=== PATIENT | male | born 1970 | race Caucasian/White ===

== ENCOUNTER 2019-05-04 06:03 | Inpatient (IN) | payer MEDICARE, SELFPAY ==
[2019-05-04] VITALS (9 sets, daily range): BP systolic 119–146; BP diastolic 93–103; PULSE 83–105; RESP 16–18; TEMP 36.3–37; O2SAT 95–97; BMI 36.3; BMI 35.0
--- NOTE | 2019-05-04 06:42 | CT_ITS ---
STUDY: CT ABDOMEN AND PELVIS WITH CONTRAST REASON FOR EXAM: Male, 48 years old. Mid abdominal pain. History of prior partial colectomy. RADIATION DOSAGE (If Supplied By Facility): CTDIvol = ( 17.05 ) mGy, DLP = ( 1295.53 ) mGycm TECHNIQUE: Transaxial images were obtained from the dome of the diaphragm to the symphysis pubis with oral contrast. 100 IV/Oral Isovue 300 was administered. Sagittal and coronal images were reconstructed. Individualized dose optimization techniques were used for this CT. COMPARISON: None. FINDINGS: The visualized lung bases are unremarkable. The visualized portions of the heart are within normal limits. There is decreased attenuation of the liver consistent with steatosis. There is a 5.1 mm hypodense nodule in the inferior aspect of the right lobe of the liver. This may or present a small cyst. Normal gallbladder and extrahepatic biliary system. Normal spleen. Normal pancreas. Normal bilateral adrenal glands. Normal right kidney. There is a 4.9 mm nonobstructive calculus in the lower pole calyx of the left kidney. 1.2 cm cyst in the left kidney. There is a small hiatal hernia. Minimally distended small bowel loops with air-fluid levels in the upper abdomen. Distal small bowel loops are unremarkable. The transition point is in the distal jejunum. Surgical clips are seen in the right upper quadrant. There is evidence of a subtotal colectomy. The rectum is unremarkable. The appendix is visualized and appears normal. Normal abdominal aorta. Normal inferior vena cava. Normal retroperitoneum. There is a 1.4 cm outpouching along the lateral posterior aspect of the left side of the bladder. This may represent a small bladder diverticulum. There are prostatic calcifications. Normal abdominal wall. Small benign-appearing bilateral inguinal lymph nodes. Normal osseous structures. CT/Abdomen/Pelvis WITH Contrast IMPRESSION: Status post subtotal colectomy. Mildly dilated small bowel loops with the transition point in the distal jejunum. Diffuse fatty infiltration of the liver are Nonobstructive calculus in the lower pole calyx of the left kidney. Electronically Signed: Arthur Santiago, at 9:17 EDT , Service support ,
--- NOTE | 2019-05-04 06:47 | ED.VIS.GEN ---
History of Present Illness Chief Complaint: Abd Pain Narrative: Patient is a 48-year-old male who presents with abdominal pain. This began about an hour or hour and a half after eating last night. He ate at a buffet. He ate chicken mashed potatoes and noodles. He does not have a history of similar pain with fatty or greasy foods previously. He describes his pain as cramping or squeezing in the mid abdomen. Other family members who ate at the same restaurant are not ill. His pain worsened through the night and about 5 hours ago he developed nausea and vomiting and has had about 3 or 4 episodes since that time. No fevers. No diarrhea. He denies chest pain shortness of breath cough or other recent illness. He does have a history of colon resection due to diverticulitis with perforation. Past Medical History - Allergies and Home Meds Allergies/Adverse Reactions: Allergies No Known Allergies Allergy (Verified 05/04/19 06:55) Primary Care Physician: NOT,DEFINED [NON-STAFF] - Past Medical History: - - Diverticulitis, hypertension, hyperlipidemia Surgical History: - - Colon resection Smoking Status: Former smoker Review of Systems All systems negative except as indicated General: Denies: Fever Cardiovascular: Denies: Chest pain Respiratory: Denies: Dyspnea Gastrointestinal: Reports: Abdominal pain, Nausea, Vomiting. Denies: Diarrhea Skin: Denies: Rash Neurological: Denies: Headache Physical Exam Vital Signs/Narrative: Vital Signs Temp Pulse Resp BP Pulse Ox 05/04/19 06:11 97.4 F L 103 H 16 142/103 H 95 05/04/19 06:05 97.8 F 98 16 142/103 H 95 General: Well nourished Head: Normocephalic Eyes: EOMI ENT: Moist mucous membranes Cardiovascular: Regular rate, Regular rhythm Respiratory: No distress Abdomen: Soft, - - Mid abdominal tenderness without guarding without rebound no focal right upper quadrant right lower quadrant tenderness. No pain at McBurney's point, negative Schaefer sign Skin: Normal color Neurological: Alert Psychological: Normal affect Diagnostic/Tx/Re-eval 05/04/19 06:42 Abdomen/Pelvis WITH Contrast [CT] Stat Laboratory Results 05/04/19 05/04/19 06:15 06:15 WBC 14.1 H RBC 5.81 Hgb 16.9 H Hct 50.3 MCV 86.6 MCH 29.1 MCHC 33.6 RDW Std Deviation 40.2 RDW Coeff of [place] 12.8 Plt Count 298 MPV 10.6 Immature Gran % (Auto) 0.500 Neut % (Auto) 90.1 H Lymph % (Auto) 6.2 L [place] % (Auto) 2.7 Eos % (Auto) 0.1 Baso % (Auto) 0.4 Absolute Neuts (auto) 12.7 H Absolute Lymphs (auto) 0.88 Nucleated RBC % 0 Sodium 141 Potassium 4.1 Chloride 107 Carbon Dioxide 26.0 Anion Gap 8 BUN 10 Creatinine 0.98 Estim Creat Clear Calc 103.05 Est GFR (MDRD) Af Amer 104 Est GFR (MDRD) Non-Af 86 BUN/Creatinine Ratio 10.2 Glucose 130 H Calcium 9.2 Total Bilirubin 0.80 AST 13 L ALT 29 Alkaline Phosphatase 60 Total Protein 7.3 Albumin 3.9 Globulin 3.4 Albumin/Globulin Ratio 1.1 Lipase 119 - Medical Decision Making Patient was treated with IV fluids morphine Zofran with improvement of symptoms. Labs are notable for white blood cell count of 14,000. Differential would include cholecystitis, diverticulitis, bowel obstruction. Therefore felt CT was the best study to further evaluate. At the time of this dictation a CT of the abdomen and pelvis with oral and IV contrast is pending. Patient has been signed out to the oncoming physician to follow-up on this result make final disposition. ED Disposition - Plan for ED Patient: Diagnosis: Abdominal pain Referrals: NOT,DEFINED [NON-STAFF] -
[2019-05-04] MEDS: 0.9% Normal Saline 1,000 ML 1000 ML IV (06:55)
[2019-05-04] MEDS: Ondansetron 4 MG/2 ML Vial IV ×2 (06:56→17:22)
[2019-05-04] MEDS: Morphine 4 MG/ML Syringe IV ×2 (06:57→10:00)
[2019-05-04 06:59] LABS: Absolute Lymphocyte Count 0.88 X10^3/uL (0.83-4.51); Absolute Neutrophil Count 12.7 X10^3/uL (2.0-7.7); Basophil# 0.06 X10^3/uL; Basophil% 0.4 % (0-1); Eosinophil# 0.02 X10^3/uL; Eosinophils% 0.1 % (0-5); Hematocrit 50.3 % (40-54); Hemoglobin 16.9 g/dL (13.0-16.5); Lymphocyte # 0.88 X10^3/ul (4.0); Lymphocyte % 6.2 % (19-41); Mean Corp Hgb Conc 33.6 g/dL (32-36); Mean Corpuscular Hgb 29.1 pg (27.0-32.0); Mean Corpuscular Volume 86.6 fL (80-94); Mean Platelet Vol. 10.6 fl (6.2-12.0); Monocyte# 0.38 X10^3/uL; Monocyte% 2.7 % (0-10); NRBC Flagged by Analyzer 0 % (0-5); Neutrophil # 12.71 X10^3/uL (2.7-7.7); Neutrophil % 90.1 % (47-70); Platelet Count 298 K/mm3 (150-450); RBC Distribution Width CV 12.8 % (11.6-14.6); RBC Distribution Width SD 40.2 fl (35.1-43.9); Red Blood Count 5.81 M/mm3 (4.6-6.2); White Blood Count 14.1 K/mm3 (4.4-11.0)
[2019-05-04 07:06] LABS: ALB/GLOB Ratio 1.1 RATIO (0.9-2.4); AST(SGOT) 13 U/L (15-37); Alanine Aminotransfer ALT/SGPT 29 U/L (16-61); Albumin, Serum 3.9 g/dL (3.2-5.0); Alkaline Phosphatase 60 U/L (45-117); Anion Gap 8 (5-15); BUN 10 mg/dL (7-18); BUN/Creat Ratio 10.2 RATIO (10-20); Calcium,Total 9.2 mg/dL (8.5-10.1); Chloride 107 mmol/L (98-107); Creatinine, Serum 0.98 mg/dL (0.70-1.30); EST Glomerular Filtration Rate 86 mL/min (>60); Est Glom Filt Rate - Afr Amer 104 mL/min (>60); Estimated Creatinine Clearance 103.05 ml/min; Globulin 3.4 g/dL (2.2-4.2); Glucose 130 mg/dL (74-106); Lipase 119 U/L (73-393); Potassium 4.1 mmol/L (3.5-5.1); Protein, Total 7.3 g/dL (6.4-8.2); Sodium Level 141 mmol/L (136-145)
--- NOTE | 2019-05-04 09:49 | NURSING ---
MED SURG SUSPECTED SBO ZACH
--- NOTE | 2019-05-04 10:45 | HP.PCM_ITS ---
Problem List (1) GERD (gastroesophageal reflux disease) Status: Chronic (2) Hyperlipidemia Status: Chronic (3) Depression Status: Chronic (4) Hypertension Status: Chronic (5) Small bowel obstruction Status: Acute History of Present Illness Date of Admission: 05/04/19 Chief Complaint: Abdominal pain. The patient is a 48 year old M with past medical history as mentioned above presented to the emergency room because of abdominal pain. Her symptoms started last night with abdominal pain, initially was mild, around mid abdomen, got worse when he was about to go to bed, sharp pain and sometimes twisting pain, was almost 10 out of 10 in severity, associated with nausea and vomiting and without aggravating or relieving factors. The pain was intermittent, comes and episodes. He reported associated heartburn. He mentioned that he had bowel movement last night but he has not passing any gas since last night. He denies fever or chills. He had a history of colon resection 19 years ago for perforated diverticulitis. In the emergency department, patient was slightly tachycardic, other vital signs were stable. Routine blood work was remarkable for leukocytosis, otherwise normal. LFT and lipase were unremarkable. CT scan abdomen and pelvis with contrast revealed mildly dilated small bowel loops with transition point in the distal jejunum. He is being admitted for small bowel obstruction. Past Medical History Past Medical History (Chronic Problems): Chronic Problems GERD (gastroesophageal reflux disease) (Chronic) Hyperlipidemia (Chronic) Depression (Chronic) Hypertension (Chronic) Allergies No Known Allergies Allergy (Verified 05/04/19 06:55) Home Medications: Ambulatory Orders Medication Instructions Recorded DiphenhydrAMINE [Benadryl] 50 mg PO DAILY 05/04/19 Lamotrigine [Lamictal] 150 mg PO QHS 05/04/19 Metoprolol Succinate [Toprol Xl] 25 mg PO DAILY 05/04/19 Omeprazole 20 mg PO BID 05/04/19 Rosuvastatin Calcium [Crestor] 5 mg PO DAILY 05/04/19 traZODone [Desyrel] 200 mg PO QHS 05/04/19 Surgical History: colectomy, - - Colon resection Psychiatric History: Depression Lives: Spouse/ Significant Other Smoking Status: Former smoker Alcohol: None Drugs: None - *Family History Maternal History Items: No pertinent history Paternal History Items: No pertinent history Review of Systems Constitutional: Denies: Anorexia, Chills, Fever, Weakness Eyes: Denies: Blurred vision, Double vision, Drainage, Redness HEENT: Denies: Difficulty Hearing, Ear Pain, Eye Pain, Nasal Congestion, Sore Throat Cardiovascular: Denies: Chest Pain, Chest Pressure, Chest Tightness, Heaviness, Light Headedness, Palpitations, Syncope Respiratory: Denies: Cough, Hemoptysis, Pleuritic Pain, Shortness of Breath, Sputum production, Wheezing Gastrointestinal: Reports: Abdominal Pain, Nausea, Vomiting. Denies: Constipation, Diarrhea, Hematochezia, Melena Genitourinary: Denies: Dysuria, Frequency, Hematuria Musculoskeletal: Denies: Arm Pain, Back Pain, Foot Pain Skin: Denies: Dryness, Rash Neurological: Denies: Balance problems, Double vision, Change in Speech, Slurred speech, Confusion, Headaches, Incoordination, Numbness Psychiatric: Reports: Depression. Denies: Anxiety Endocrine: Denies: Change in Body Habitus, Polydipsia, Polyuria VTE Information - Inpt Only VTE Present on Admission: No VTE Mechan Device Prophylaxis: None VTE Pharm Prophylaxis ordered?: No Patient Problems: Active and Suspected Problems Small bowel obstruction (Acute) - Physical Exam General: Alert, Oriented x3, Cooperative, No apparent distress HEENT: Atraumatic, PERRLA, EOMI, Normocephalic Oral: Moist Mucosa, No Gingival or Mucosal Lesions/ Ulcerations Neck: Supple, No JVD, Negative Carotid Bruits, Trachea Midline, Thyroid Normal Size and Texture Lungs: Clear to auscultation, Normal air movement, No rhonchi, No wheeze, No rales Cardiovascular: Regular rate, Regular Rhythm, Normal S1, Normal S2, PMI Normal, Tachycardic Abdomen: Bowel Sounds Present, Non-Distended, No Hepato-splenomegaly, Tender - No guarding or rigidity. Extremities: No clubbing, No cyanosis, No edema Skin: No rashes, No breakdown Lymphatic: No Cervical, Supraclavicular, or Inguinal Adenopathy Neurological: Cranial nerves II-XII grossly intact, Motor Exam 5/5 strength throughout Psych/Mental Status: Normal Affect, Appropriate, Alert and oriented to time, place, person, mood and affect Vital Signs Temp Pulse Resp BP Pulse Ox 97.4 F L 105 H 16 145/99 H 96 05/04/19 06:11 05/04/19 10:04 05/04/19 10:04 05/04/19 10:04 05/04/19 10:04 Oxygen Delivery Method Room Air Weight: 275 lb 12.772 oz Body Mass Index (BMI) 36.3 Laboratory Tests Past 24 Hrs 05/04/19 05/04/19 06:15 06:15 WBC 14.1 H RBC 5.81 Hgb 16.9 H Hct 50.3 MCV 86.6 MCH 29.1 MCHC 33.6 RDW Std Deviation 40.2 RDW Coeff of [place] 12.8 Plt Count 298 MPV 10.6 Immature Gran % (Auto) 0.500 Neut % (Auto) 90.1 H Lymph % (Auto) 6.[address] [place] % (Auto) 2.7 Eos % (Auto) 0.1 Baso % (Auto) 0.4 Absolute Neuts (auto) 12.7 H Absolute Lymphs (auto) 0.88 Nucleated RBC % 0 Sodium 141 Potassium 4.1 Chloride 107 Carbon Dioxide 26.0 Anion Gap 8 BUN 10 Creatinine 0.98 Estim Creat Clear Calc 103.05 Est GFR (MDRD) Af Amer 104 Est GFR (MDRD) Non-Af 86 BUN/Creatinine Ratio 10.2 Glucose 130 H Calcium 9.2 Total Bilirubin 0.80 AST 13 L ALT 29 Alkaline Phosphatase 60 Total Protein 7.3 Albumin 3.9 Globulin 3.4 Albumin/Globulin Ratio 1.1 Lipase 119 Clinical Impression(s) from Imaging Studies Abdomen/Pelvis CT 05/04/19 06:42 IMPRESSION: Status post subtotal colectomy. Mildly dilated small bowel loops with the transition point in the distal jejunum. Diffuse fatty infiltration of the liver are Nonobstructive calculus in the lower pole calyx of the left kidney. Electronically Signed: Arthur Santiago, at 9:17 EDT , Service support , Assessment/Plan All Active Problems Small bowel obstruction (Acute) This is a 48 years old male patient presented to the emergency room because of abdominal pain with nausea and vomiting and was found to have findings consistent with small bowel obstruction and he is being admitted for treatment. #1 small bowel obstruction: Likely due to adhesions, patient had a history of colectomy for perforated diverticulitis [address] scan abdomen and pelvis with contrast reviewed as above. Apart from leukocytosis, routine blood work was unremarkable. Serum electrolytes are within normal limits. LFT and lipase were normal. Plan: Admit to MedSur floor, keep on n.p.o., IV fluids, IV morphine PRN, IV Zofran and Phenergan as needed for nausea vomiting, IV Pepcid, general surgery consult, repeat CBC and BMP tomorrow morning, KUB tomorrow morning, ambulate. #2 hypertension: Blood pressure stable, continue metoprolol, IV dosing PRN. #3 GERD: Start IV Protonix. #4 depression/insomnia: Continue Lamictal and trazodone. #5 hyperlipidemia: Hold statins. #6 DVT prophylaxis: Low risk patient, no prophylaxis indicated, ambulate. This note was generated with [employer] dictation software. It may contain incorrect words, spelling, and punctuation that were not noted in checking the note before signing. Code Visit Inpatient E&M: 33085 Init Hosp L3
[2019-05-04] MEDS: Metoprolol(XL)Succ 25 MG Tablet PO (12:16)
[2019-05-04] MEDS: 0.9% Normal Saline 1,000 ML 100 ML IV ×2 (12:16→21:22)
[2019-05-04] MEDS: proMETHazine 25 MG/ML Syringe 6.25 MG IV ×2 (12:17→21:23)
[2019-05-04] MEDS: Morphine 2 MG/ML Syringe IV ×3 (12:17→21:23)
--- NOTE | 2019-05-04 12:20 | CON.PCM_ITS ---
Problem List (1) Small bowel obstruction Status: Acute Reason for Consult Date of Consultation: 05/04/19 Reason for Consultation: Small bowel obstruction History of Present Illness: The patient is a 48 year old M with abdominal pain and nausea and vomiting. Patient started to have abdominal pain yesterday and was up through the night with nausea and vomiting. He says the pain is in his upper abdomen and does not radiate. He is never had any bowel obstructions in the past. He does say that he had a hemicolectomy for diverticulitis 19 years ago. Past Medical History Past Medical History (Chronic Problems): Chronic Problems GERD (gastroesophageal reflux disease) (Chronic) Hyperlipidemia (Chronic) Depression (Chronic) Hypertension (Chronic) Allergies No Known Allergies Allergy (Verified 05/04/19 06:55) Home Medications: Ambulatory Orders Medication Instructions Recorded DiphenhydrAMINE [Benadryl] 50 mg PO QHS 05/04/19 Lamotrigine [Lamictal] 150 mg PO QHS 05/04/19 Metoprolol Succinate [Toprol Xl] 25 mg PO DAILY 05/04/19 Omeprazole 20 mg PO BID 05/04/19 Rosuvastatin Calcium [Crestor] 5 mg PO DAILY 05/04/19 traZODone [Desyrel] 200 mg PO QHS 05/04/19 Surgical History: colectomy, - - Colon resection Psychiatric History: Depression Lives: Spouse/ Significant Other Smoking Status: Former smoker Alcohol: None Drugs: None - *Family History Maternal History Items: No pertinent history Paternal History Items: No pertinent history Review of Systems Constitutional: Denies: Anorexia, Fever HEENT: Denies: Difficulty Swallowing Cardiovascular: Denies: Chest Pain Respiratory: Denies: Cough, Shortness of Breath Gastrointestinal: Reports: Abdominal Pain, Nausea, Vomiting. Denies: Constipation, Diarrhea Musculoskeletal: Denies: Joint Tenderness Skin: Denies: Jaundice Psychiatric: Denies: Depression Hematologic/ Lymphatic: Denies: Adenopathy Patient Problems: Active and Suspected Problems Small bowel obstruction (Acute) - Physical Exam General: Alert, Oriented x3, Cooperative Lungs: Normal air movement Cardiovascular: Regular rate, Regular Rhythm Abdomen: Soft, Non-Distended, Tender - Tender in the upper abdomen Psych/Mental Status: Normal Affect, Appropriate Vital Signs Temp Pulse Resp BP Pulse Ox 98.6 F 97 18 119/93 H 97 05/04/19 11:09 05/04/19 11:09 05/04/19 11:09 05/04/19 11:09 05/04/19 11:09 Oxygen Delivery Method Room Air Weight: 265 lb 6.985 oz Body Mass Index (BMI) 35.0 Intake and Output for Last 24 Hours 05/02/19 05/03/19 05/04/19 23:59 23:59 23:59 Intake Total 1000 / 1000 Balance 1000 / 1000 Laboratory Tests Past 24 Hrs 05/04/19 05/04/19 06:15 06:15 WBC 14.1 H RBC 5.81 Hgb 16.9 H Hct 50.3 MCV 86.6 MCH 29.1 MCHC 33.6 RDW Std Deviation 40.2 RDW Coeff of [place] 12.8 Plt Count 298 MPV 10.6 Immature Gran % (Auto) 0.500 Neut % (Auto) 90.1 H Lymph % (Auto) 6.2 L [place] % (Auto) 2.7 Eos % (Auto) 0.1 Baso % (Auto) 0.4 Absolute Neuts (auto) 12.7 H Absolute Lymphs (auto) 0.88 Nucleated RBC % 0 Sodium 141 Potassium 4.1 Chloride 107 Carbon Dioxide 26.0 Anion Gap 8 BUN 10 Creatinine 0.98 Estim Creat Clear Calc 103.05 Est GFR (MDRD) Af Amer 104 Est GFR (MDRD) Non-Af 86 BUN/Creatinine Ratio 10.2 Glucose 130 H Calcium 9.2 Total Bilirubin 0.80 AST 13 L ALT 29 Alkaline Phosphatase 60 Total Protein 7.3 Albumin 3.9 Globulin 3.4 Albumin/Globulin Ratio 1.1 Lipase 119 Clinical Impression(s) from Imaging Studies Abdomen/Pelvis CT 05/04/19 06:42 IMPRESSION: Status post subtotal colectomy. Mildly dilated small bowel loops with the transition point in the distal jejunum. Diffuse fatty infiltration of the liver are Nonobstructive calculus in the lower pole calyx of the left kidney. Electronically Signed: Arthur Santiago, at 9:17 EDT , Service support , Assessment/Plan All Active Problems Small bowel obstruction (Acute) 48-year-old male with small bowel obstruction 1. Patient reports nausea and vomiting as well as upper abdominal pain. His abdomen is not very distended but he is tender in the upper abdomen. CT scan reveals possible small bowel obstruction with transition point in the distal jejunum. Patient has a history of colectomy with no other abdominal surgeries. He is never had a bowel obstruction in the past. He is not having any nausea or vomiting at this time. 2. If the patient does have any further nausea vomiting I recommend placing an NG tube. Otherwise I will see him in the morning and a KUB has been ordered. If KUB does not improve I will order a small bowel follow-through for tomorrow and possibly operate tomorrow for small bowel obstruction. At this time there are no hard signs for surgery and there is no guarding or rigidity to suggest ischemic bowel. Pal Coon MD Pager: [facility] [address] [place] [address], [address] [place] [phone] Office:
[2019-05-04] MEDS: 0.9% NaCl Peripheral Flush Adult/Peds IV ×2 (17:22→21:24)
[2019-05-04] MEDS: Acetaminophen 325 MG Tablet 650 MG PO (18:00)
[2019-05-04] MEDS: lamoTRIgine 150 MG Tablet PO (21:21)
[2019-05-04] MEDS: traZODone 100 MG Tablet 200 MG PO (21:21)
[2019-05-05] VITALS (12 sets, daily range): BP systolic 84–159; BP diastolic 54–108; PULSE 60–96; RESP 16; TEMP 36.6–36.9; O2SAT 92–99
[2019-05-05] MEDS: Acetaminophen 325 MG Tablet 650 MG PO ×2 (03:14→16:52)
--- NOTE | 2019-05-05 05:55 | RAD_ITS ---
STUDY: X-RAY - ABDOMEN/PELVIS REASON FOR EXAM: Male, 48 years old. History of small bowel obstruction. TECHNIQUE: Single AP view of the abdomen / pelvis. COMPARISON: None. FINDINGS: Normal visualized lung bases. There is an unremarkable bowel gas pattern. Oral contrast is seen in the right hemicolon from prior CT scan. The visualized liver, spleen and kidneys are grossly normal in size and morphology. Surgical clips are seen in the right upper quadrant. Normal soft tissue structures. Normal visualized osseous structures. RAD/Abdomen Single View (Portable) IMPRESSION: Nonspecific bowel gas pattern. Electronically Signed: Arthur Santiago, at 8:34 EDT , Service support ,
[2019-05-05] MEDS: 0.9% Normal Saline 1,000 ML 100 ML IV ×2 (06:47→16:53)
[2019-05-05 07:03] LABS: Absolute Lymphocyte Count 0.96 X10^3/uL (0.83-4.51); Basophil# 0.04 X10^3/uL; Basophil% 0.4 % (0-1); Eosinophil# 0.19 X10^3/uL; Eosinophils% 1.9 % (0-5); Hematocrit 45.3 % (40-54); Hemoglobin 15.1 g/dL (13.0-16.5); Lymphocyte # 0.96 X10^3/ul (4.0); Lymphocyte % 9.6 % (19-41); Mean Corp Hgb Conc 33.3 g/dL (32-36); Mean Corpuscular Hgb 29.8 pg (27.0-32.0); Mean Corpuscular Volume 89.3 fL (80-94); Mean Platelet Vol. 10.1 fl (6.2-12.0); Monocyte# 0.72 X10^3/uL; Monocyte% 7.2 % (0-10); NRBC Flagged by Analyzer 0 % (0-5); Neutrophil # 8.02 X10^3/uL (2.7-7.7); Neutrophil % 80.5 % (47-70); Platelet Count 228 K/mm3 (150-450); RBC Distribution Width CV 12.9 % (11.6-14.6); Red Blood Count 5.07 M/mm3 (4.6-6.2)
[2019-05-05 07:22] LABS: Anion Gap 3 (5-15); BUN 10 mg/dL (7-18); BUN/Creat Ratio 10.8 RATIO (10-20); Calcium,Total 8.4 mg/dL (8.5-10.1); Chloride 108 mmol/L (98-107); Creatinine, Serum 0.92 mg/dL (0.70-1.30); EST Glomerular Filtration Rate 92 mL/min (>60); Est Glom Filt Rate - Afr Amer 112 mL/min (>60); Estimated Creatinine Clearance 109.77 ml/min; Glucose 91 mg/dL (74-106); Potassium 4.1 mmol/L (3.5-5.1); Sodium Level 140 mmol/L (136-145)
[2019-05-05] MEDS: Morphine 2 MG/ML Syringe IV ×3 (08:08→11:33)
--- NOTE | 2019-05-05 08:12 | PN_ITS ---
Patient Problems: Active and Suspected Problems Small bowel obstruction (Acute) Subjective: Chief complaint: Follow-up after admission for small bowel obstruction. Patient seen and examined. No acute events overnight. Abdominal pain improved, down to 5 out of 10 in severity but still there. This morning, he had an episode of nausea and vomiting. He has been passing flatus, no bowel movement. His vital signs are stable. - Physical Exam General: Alert, Oriented x3, Cooperative, No apparent distress HEENT: Atraumatic, PERRLA, EOMI, Normocephalic Oral: Moist Mucosa, No Gingival or Mucosal Lesions/ Ulcerations Neck: Supple, No JVD, Negative Carotid Bruits, Trachea Midline, Thyroid Normal Size and Texture Lungs: Clear to auscultation, Normal air movement, No rhonchi, No wheeze, No rales Cardiovascular: Regular rate, Regular Rhythm, Normal S1, Normal S2, No murmurs Abdomen: Soft, Non-Distended, No Hepato-splenomegaly, Hypoactive Bowel Sounds, Tender - Minimal superficial tenderness. No guarding or rigidity. Extremities: No clubbing, No cyanosis, No edema Skin: No rashes, No breakdown Lymphatic: No Cervical, Supraclavicular, or Inguinal Adenopathy Neurological: Cranial nerves II-XII grossly intact, Neuro grossly intact Psych/Mental Status: Normal Affect, Appropriate, Alert and oriented to time, place, person, mood and affect Vital Signs Temp Pulse Resp BP Pulse Ox 98.1 F 85 16 125/79 H 94 05/05/19 03:10 05/05/19 03:10 05/05/19 03:10 05/05/19 03:10 05/05/19 07:02 Oxygen Delivery Method Room Air Weight: 265 lb 6.985 oz Body Mass Index (BMI) 35.0 Intake and Output for Last 24 Hours 05/03/19 05/04/19 05/05/19 23:59 23:59 23:59 Intake Total 2485.01 / 2485.01 680 / 680 Balance 2485.01 / 2485.01 680 / 680 Laboratory Tests Past 24 Hrs 05/05/19 05/05/19 06:50 06:50 WBC 10.0 RBC 5.07 Hgb 15.1 Hct 45.3 MCV 89.3 MCH 29.8 MCHC 33.3 RDW Std Deviation 42.0 RDW Coeff of [place] 12.9 Plt Count 228 MPV 10.1 Immature Gran % (Auto) 0.400 Neut % (Auto) 80.5 H Lymph % (Auto) 9.6 L [place] % (Auto) 7.2 Eos % (Auto) 1.9 Baso % (Auto) 0.4 Absolute Neuts (auto) 8.0 H Absolute Lymphs (auto) 0.96 Nucleated RBC % 0 Sodium 140 Potassium 4.1 Chloride 108 H Carbon Dioxide 29.0 Anion Gap 3 L BUN 10 Creatinine 0.92 Estim Creat Clear Calc 109.77 Est GFR (MDRD) Af Amer 112 Est GFR (MDRD) Non-Af 92 BUN/Creatinine Ratio 10.8 Glucose 91 Calcium 8.4 L Medical Necessity - Tobacco Use Smoking Status: Former smoker Assessment/Plan All Active Problems Small bowel obstruction (Acute) This is a 48 years old male patient presented to the emergency room because of abdominal pain with nausea and vomiting and was found to have findings consistent with small bowel obstruction and he is being admitted for treatment. #1 small bowel obstruction: He is on IV fluids, IV morphine PRN, IV antiemetics and kept on n.p.o. Abdominal pain improved but still there, has been passing flatus, normal movement. Repeat routine blood work was unremarkable, leukocytosis resolved. KUB from today reviewed, contrast is down to the colon. General surgery on the case. Patient was started on clear liquids. Plan: Yuriy nue same treatment, ambulate. #2 hypertension: Blood pressure stable, continue metoprolol, continue IV hydralazine PRN #3 GERD: He is on IV Protonix. #4 depression/insomnia: Continue Lamictal and trazodone. #5 hyperlipidemia: Keep holding statins. #6 DVT prophylaxis: Low risk patient, no prophylaxis indicated, ambulate. This note was generated with [employer] dictation software. It may contain incorrect words, spelling, and punctuation that were not noted in checking the note before signing. Code Visit Inpatient E&M: 95385 Subs Hosp L2
--- NOTE | 2019-05-05 08:15 | PCM.PN.SRG ---
Patient Problems: Active and Suspected Problems Small bowel obstruction (Acute) Subjective: Patient reports he is passing some flatus this morning. He had no vomiting overnight but he still has some mild nausea. He still complaining of left upper quadrant pain. - Physical Exam General: Alert, Oriented x3 Neck: No JVD Lungs: Normal air movement Cardiovascular: Regular rate, Regular Rhythm Abdomen: Soft, Non-Distended, Tender - Tender in the left upper quadrant but no guarding or rebound Vital Signs Temp Pulse Resp BP Pulse Ox 98.1 F 85 16 125/79 H 94 05/05/19 03:10 05/05/19 03:10 05/05/19 03:10 05/05/19 03:10 05/05/19 07:02 Oxygen Delivery Method Room Air Weight: 265 lb 6.985 oz Body Mass Index (BMI) 35.0 Intake and Output for Last 24 Hours 05/03/19 05/04/19 05/05/19 23:59 23:59 23:59 Intake Total 2485.01 / 2485.01 680 / 680 Balance 2485.01 / 2485.01 680 / 680 Laboratory Tests Past 24 Hrs 05/05/19 05/05/19 06:50 06:50 WBC 10.0 RBC 5.07 Hgb 15.1 Hct 45.3 MCV 89.3 MCH 29.8 MCHC 33.3 RDW Std Deviation 42.0 RDW Coeff of Clare 12.9 Plt Count 228 MPV 10.1 Immature Gran % (Auto) 0.400 Neut % (Auto) 80.5 H Lymph % (Auto) 9.6 L [place] % (Auto) 7.2 Eos % (Auto) 1.9 Baso % (Auto) 0.4 Absolute Neuts (auto) 8.0 H Absolute Lymphs (auto) 0.96 Nucleated RBC % 0 Sodium 140 Potassium 4.1 Chloride 108 H Carbon Dioxide 29.0 Anion Gap 3 L BUN 10 Creatinine 0.92 Estim Creat Clear Calc 109.77 Est GFR (MDRD) Af Amer 112 Est GFR (MDRD) Non-Af 92 BUN/Creatinine Ratio 10.8 Glucose 91 Calcium 8.4 L Medical Necessity - Tobacco Use Smoking Status: Former smoker Assessment/Plan All Active Problems Small bowel obstruction (Acute) 48-year-old male with small bowel obstruction 1. Patient reports he is passing flatus today and his KUB shows contrast in the colon. I will start a clear liquid diet and see how he does today with that. He is still having some mild nausea and left upper quadrant pain. If he tolerates a clear liquid diet and his nausea and pain resolved today I will start him on a regular diet tomorrow and possible discharge tomorrow. If anything worsens today with his clear liquid diet I will plan for expiratory laparoscopy tomorrow. Pal Coon MD Pager: [facility] [address] [place] [address] [address] [place] [address] Office:
[2019-05-05] MEDS: Metoprolol(XL)Succ 25 MG Tablet PO (09:21)
--- NOTE | 2019-05-05 09:37 | NURSING ---
pt c/o continued pain after iv pain med and stated, i dont think the coffee did me any good? instructed to just take water. will text for analgesic since not due.
--- NOTE | 2019-05-05 11:40 | CASEMGMT ---
RN CM Assessment Presentation: SBO, abd pain, nausea Intro role of CM and purpose of RN CM assessment to patient and his in room. Pt is awake, alert and able to participate in assessment. Demographics, PCP and Pharmacy verified. Pt is from [place], visiting in area. Plan is to return home, and f/u with his PCP in [place]. Pt states he is independent, no care needs and no concerns re: discharge. PCP: Dr. Basilio Mg Preferred Pharmacy: [facility] Insurance: [employer] Plan I, PPO Prescription Benefit: yes LNOK: Emma Zepeda Living Arrangements: independent. no care needs per pt. Transportation: drives DME: none HHC: none Patient DC goals: Home. No concerns identified. DC PLAN: Home. Pt informed CM available if concerns/questions re: dc arise. Rosetta MIRANDAN RN ACM
[2019-05-05] MEDS: traZODone 100 MG Tablet 200 MG PO (22:03)
[2019-05-05] MEDS: lamoTRIgine 150 MG Tablet PO (22:04)
[2019-05-05] MEDS: 0.9% NaCl Peripheral Flush Adult/Peds IV (22:04)
--- NOTE | 2019-05-05 22:38 | EKG12_ITS ---
Test Reason : Blood Pressure : / mmHG Vent. Rate : 071 BPM Atrial Rate : 071 BPM P-R Int : 170 ms QRS Dur : 108 ms QT Int : 428 ms P-R-T Axes : 048 013 026 degrees QTc Int : 465 ms Normal sinus rhythm Normal ECG No previous ECGs available Confirmed by LAM RIOS ([id number]), design editor CURT MEDINA ([id number]) on 05/09/2019 3:09:01 PM Referred By: Orion Angelo Confirmed By:LAM RIOS
[2019-05-06] VITALS (7 sets, daily range): BP systolic 121–152; BP diastolic 79–96; PULSE 85–97; RESP 14–16; TEMP 36.7–37; O2SAT 93–98
[2019-05-06] MEDS: 0.9% Normal Saline 1,000 ML 100 ML IV (04:35)
[2019-05-06] MEDS: Metoprolol(XL)Succ 25 MG Tablet PO (07:35)
[2019-05-06] MEDS: Pantoprazole Sodium 20 MG Tablet PO (09:49)
--- NOTE | 2019-05-06 09:54 | PCM.PN.SRG ---
Patient Problems: Active and Suspected Problems Small bowel obstruction (Acute) Subjective: Patient reports he is continued to have flatus. He tolerated clear liquid diet yesterday with no abdominal pain or nausea or vomiting. - Physical Exam General: Alert, Oriented x3 Lungs: Normal air movement Cardiovascular: Regular rate, Regular Rhythm Abdomen: Soft, Non Tender, Non-Distended Vital Signs Temp Pulse Resp BP Pulse Ox 98.5 F 85 14 135/91 H 97 05/06/19 08:00 05/06/19 08:02 05/06/19 08:00 05/06/19 08:02 05/06/19 08:00 Oxygen Delivery Method Room Air Weight: 265 lb 6.985 oz Body Mass Index (BMI) 35.0 Orthostatic Vital Signs Start: 05/06/19 02:23 Freq: q24h Status: Active Protocol: Activity Type Activity Date Activity User E-Sign Co-Sign Detail Recorded Client Recorded Date Recorded By Document 05/06/19 08:02 DS [id number] 05/06/19 08:06 DS 05/06/19 08:02 Orthostatic Vitals Sitting -Blood Pressure (90/60-120/80) 131/92 H -Extremity Use Left Arm -Pulse Rate (60-100) 92 Standing -Blood Pressure (90/60-120/80) 132/95 H -Extremity Use Left Arm -Pulse Rate (60-100) 96 Lying -Blood Pressure (90/60-120/80) 135/91 H -Extremity Use Left Arm -Pulse Rate (60-100) 85 Intake and Output for Last 24 Hours 05/04/19 05/05/19 05/06/19 23:59 23:59 23:59 Intake Total 2485.01 / 2485.01 3391.67 / 3391.67 1130.00 / 1130.00 Balance 2485.01 / 2485.01 3391.67 / 3391.67 1130.00 / 1130.00 Laboratory Tests Past 24 Hrs 05/06/19 08:38 Troponin I < 0.015 Medical Necessity - Tobacco Use Smoking Status: Former smoker Assessment/Plan All Active Problems Small bowel obstruction (Acute) 48-year-old male with small bowel obstruction which is resolving 1. Patient tolerated clear liquids and is having no abdominal pain this morning. He is continued to have flatus. I advance him to a regular diet and if he tolerates this he can be discharged home. Follow-up with me in 2 weeks to see how he is doing. Pal Coon MD Pager: [facility] [address] [place] [address], [address] [place] [phone] Office:
--- NOTE | 2019-05-06 11:31 | DCINST_ITS ---
- Discharge Diagnoses Current Active Problems: Current Active and Chronic Problems GERD (gastroesophageal reflux disease) (Chronic) Hyperlipidemia (Chronic) Depression (Chronic) Hypertension (Chronic) Small bowel obstruction (Acute) You will use the following diet at home:: Cardiac Your food should be the consistency of: Regular Discharge Activity: Return to Normal Activity Weight Bearing Status: Full weight bearing Call your doctor if you observe: Fever of 101 or Higher, Shortness of breath, Dizziness, Fainting spells, Chest pain, Increased palpitations (irregular heartbeat), Uncontrolled pain Allergies/Adverse Reactions: Allergies No Known Allergies Allergy (Verified 05/04/19 06:55) Medications to take at Discharge DiphenhydrAMINE [Benadryl] 50 mg PO QHS 05/04/19 Lamotrigine [Lamictal] 150 mg PO QHS 05/04/19 Metoprolol Succinate [Toprol Xl] 25 mg PO DAILY 05/04/19 Omeprazole 20 mg PO BID 05/04/19 Rosuvastatin Calcium [Crestor] 5 mg PO DAILY 05/04/19 traZODone [Desyrel] 200 mg PO QHS 05/04/19 Primary Care Physician: NOT,DEFINED [NON-STAFF] - Please follow up with your Primary Care Physician in: 3-4 weeks. Test Results: Test results from this visit will be discussed in further detail at your follow- up appointment, if applicable. Please Follow Up With: Pal Coon MD When: 2 weeks.
--- NOTE | 2019-05-06 12:17 | DS.PCM_ITS ---
Discharge Date and Diagnosis - Problem List Patient Problems: Active and Suspected Problems Small bowel obstruction (Acute) Date of Admission: 05/04/19 Date of Discharge: 05/06/19 - Primary Discharge Diagnosis Active and Suspected Problems Small bowel obstruction (Acute) - Secondary Discharge Diagnosis Chronic Problems GERD (gastroesophageal reflux disease) (Chronic) Hyperlipidemia (Chronic) Depression (Chronic) Hypertension (Chronic) Hospital Course and Treatment Imaging Results: Clinical Impression(s) from Imaging Studies Abdomen/Pelvis CT 05/04/19 06:42 IMPRESSION: Status post subtotal colectomy. Mildly dilated small bowel loops with the transition point in the distal jejunum. Diffuse fatty infiltration of the liver are Nonobstructive calculus in the lower pole calyx of the left kidney. Electronically Signed: Arthur Santiago, at 9:17 EDT , Service support , KUB X-Ray 05/05/19 05:55 IMPRESSION: Nonspecific bowel gas pattern. Electronically Signed: Arthur Santiago, at 8:34 EDT , Service support , Dr. coon, general surgery. Operations: None Procedures: None Summary of Care Provided: Patient seen and examined on the day of discharge and appeared to be stable to be discharged home. Abdominal patient is improved and he has no more nausea vomiting. He has been passing gas and he had bowel movement yesterday. He did tolerate clear liquids since yesterday and today, he was started on a regular diet and he tolerated. His vital signs are stable. This is a 48 years old male patient presented to the emergency room because of abdominal pain, nausea vomiting and he was found to have small bowel obstruction. This is small bowel obstruction likely due to adhesions as patient had a history of colon resection 19 years ago for perforated diverticulitis. CT scan abdomen and pelvis with contrast revealed mildly dilated small bowel loops with transition point at the distal jejunum. Patient was admitted and treated conservatively with IV fluids, IV morphine, IV antiemetics and he kept on n.p.o. General surgery consulted and agreed to conservative approach. With above- mentioned treatment, patient symptoms improved, abdominal pain improved and he was able to have bowel movement and he has been passing flatus. His routine blood work was unremarkable including serum electrolytes. LFT and lipase were normal. Patient had an episode of low blood pressure with questionable chest pain. EKG reviewed and showed no evidence of acute ischemic changes and was normal. Troponin was done x1 and was normal 2. On the day of discharge, patient tolerated diet. Patient discharged home in a stable condition, discharged on his same previous home medications without any changes, plan to follow-up with general surgery in 2 weeks, recommended follow-up with PCP in 3 to 4 weeks. Patient Problems: Active and Suspected Problems Small bowel obstruction (Acute) - Physical Exam General: Alert, Oriented x3, Cooperative, No apparent distress HEENT: Atraumatic, PERRLA, EOMI, Normocephalic Oral: Moist Mucosa, No Gingival or Mucosal Lesions/ Ulcerations Neck: Supple, No JVD, Negative Carotid Bruits, Trachea Midline, Thyroid Normal Size and Texture Lungs: Clear to auscultation, Normal air movement, No rhonchi, No wheeze, No rales Cardiovascular: Regular rate, Regular Rhythm, Normal S1, Normal S2 Abdomen: Bowel Sounds Present, Soft, Non Tender, Non-Distended, No Hepato- splenomegaly Extremities: No clubbing, No cyanosis, No edema Skin: No rashes, No breakdown Lymphatic: No Cervical, Supraclavicular, or Inguinal Adenopathy Neurological: Cranial nerves II-XII grossly intact, Neuro grossly intact Psych/Mental Status: Normal Affect, Appropriate Vital Signs Temp Pulse Resp BP Pulse Ox 98.6 F 87 15 135/94 H 98 05/06/19 11:37 05/06/19 11:37 05/06/19 11:37 05/06/19 11:37 05/06/19 11:37 Oxygen Delivery Method Room Air Weight: 265 lb 6.985 oz Body Mass Index (BMI) 35.0 Orthostatic Vital Signs Start: 05/06/19 02:23 Freq: q24h Status: Active Protocol: Activity Type Activity Date Activity User E-Sign Co-Sign Detail Recorded Client Recorded Date Recorded By Document 05/06/19 08:02 DS [id number] 05/06/19 08:06 DS 05/06/19 08:02 Orthostatic Vitals Sitting -Blood Pressure (90/60-120/80) 131/92 H -Extremity Use Left Arm -Pulse Rate (60-100) 92 Standing -Blood Pressure (90/60-120/80) 132/95 H -Extremity Use Left Arm -Pulse Rate (60-100) 96 Lying -Blood Pressure (90/60-120/80) 135/91 H -Extremity Use Left Arm -Pulse Rate (60-100) 85 Intake and Output for Last 24 Hours 05/04/19 05/05/19 05/06/19 23:59 23:59 23:59 Intake Total 2485.01 / 2485.01 3391.67 / 3391.67 1480.00 / 1480.00 Balance 2485.01 / 2485.01 3391.67 / 3391.67 1480.00 / 1480.00 Laboratory Tests Past 24 Hrs 05/06/19 08:38 Troponin I < 0.015 Discharge Activity: Return to Normal Activity Weight Bearing Status: Full weight bearing Call your doctor if you observe: Fever of 101 or Higher, Shortness of breath, Dizziness, Fainting spells, Chest pain, Increased palpitations (irregular heartbeat), Uncontrolled pain Home Medications: Medications to take at Discharge DiphenhydrAMINE [Benadryl] 50 mg PO QHS 05/04/19 Lamotrigine [Lamictal] 150 mg PO QHS 05/04/19 Metoprolol Succinate [Toprol Xl] 25 mg PO DAILY 05/04/19 Omeprazole 20 mg PO BID 05/04/19 Rosuvastatin Calcium [Crestor] 5 mg PO DAILY 05/04/19 traZODone [Desyrel] 200 mg PO QHS 05/04/19 Primary Care Physician: NOT,DEFINED [NON-STAFF] - Please follow up with your Primary Care Physician in: 3-4 weeks. Please Follow Up With: Pal Coon MD When: 2 weeks. Disposition: Home Minutes spent on discharge:: 32 Patient Condition:: Stable Medical Necessity - Tobacco Use Smoking Status: Former smoker Meaningful Use Info Meaningful Use Diagnoses (Choose all that apply): None applicable Code Visit Inpatient E&M: 68662 Disch Hosp
== END 2019-05-06 14:03 | disposition home or self-care (01) | DRG 390 ==
LOC: ED 08:35 → PCU 09:53
PROVIDERS: Emergency Medicine; Admitting Provider Hospitalist; Emergency Provider Emergency Medicine; Referring Provider Hospitalist; Visit Provider Hospitalist
DX: K56.50 Intestinal adhesions [bands], unspecified as to partial versus complete obstruction (principal); E78.5 Hyperlipidemia, unspecified; I10 Essential (primary) hypertension; K21.9 Gastro-esophageal reflux disease without esophagitis; Z90.49 Acquired absence of other specified parts of digestive tract; Z87.891 Personal history of nicotine dependence; F32.9 Major depressive disorder, single episode, unspecified
CPT/HCPCS: 36415; 74018; 74177; 80048; 80053; 83690; 84484; 85025; 93005; 99284; J7030; Q9967; A4216; J2405